=== PATIENT | female | born 1995 | race Caucasian/White ===

== ENCOUNTER 2018-12-20 14:32 | Inpatient (IN) | payer MEDICAID ==
[~2018-12-20] VITALS: Ht 152.4 cm; Wt 50.8 kg
[2018-12-20] MEDS ORDERED: SODIUM CHLORIDE 0.9% 1,000 ML IV ONE (15:17)
[2018-12-20] MEDS ORDERED: ONDANSETRON HCL 4MG/2ML INJ IV STA (15:17)
[2018-12-20] MEDS ORDERED: MORPHINE SULFATE 4 MG/ML CPJ (NOT FOR IM USE) IV STA (15:17)
[2018-12-20] MEDS ORDERED: KETOROLAC 30MG/ML VIAL IV STA (15:17)
[2018-12-20] MEDS ORDERED: MORPHINE SULFATE 4 MG/ML CPJ (NOT FOR IM USE) IV ONE (15:45)
[2018-12-20 16:50] LABS: BASOPHILS % 0.2 % (0.0-2.0); EOSINOPHILS % 0.4 % (0.0-5.0); HEMATOCRIT. 35.8 % (36.0-48.0); LYMPHOCYTES % 14.8 % (20.0-50.0); MEAN CORPUSCULAR VOLUME 83.7 fL (81.0-99.0); MEAN PLATELET VOLUME 9.2 fl (7.4-10.4); MONOCYTES % 5.1 % (2.0-8.0); NEUTROPHILS % 79.5 % (40.0-76.0); PLATELET 302 x1000/uL (130-400); RED BLOOD CELL COUNT 4.28 mill/uL (4.2-5.4); RED CELL DISTRIBUTION WIDTH 15.8 % (11.6-14.6)
[2018-12-20 16:51] LABS: CHLORIDE 109 mEq/L (98-107)
[2018-12-20 16:53] LABS: PROTHROMBIN TIME 10.3 sec (9.6-11.0)
[2018-12-20 17:05] LABS: HCG SCREEN NEGATIVE
[2018-12-20] MEDS ORDERED: LORAZEPAM 2MG/ML CPJ IV PRN (18:30)
[2018-12-20] MEDS ORDERED: MAGNESIUM/ALUMINUM HYDROXIDE/SIMETHICONE 30ML UDC PO PRN (18:30)
[2018-12-20] MEDS ORDERED: IPRATROPIUM/ALBUTEROL 0.5-3(2.5)MG/3ML NEB NEB PRN (18:30)
[2018-12-20] MEDS ORDERED: PIPERACILLIN/TAZ 3.375G PREMIX 50 ML IV SCH (18:30)
[2018-12-20] MEDS ORDERED: CLONIDINE 0.1MG TABLET PO PRN (18:30)
[2018-12-20] MEDS ORDERED: DIPHENHYDRAMINE 50MG/ML VIAL IV PRN (18:30)
[2018-12-20] MEDS ORDERED: ACETAMINOPHEN 325MG TABLET PO PRN (18:30)
[2018-12-20] MEDS ORDERED: DOCUSATE SODIUM 100MG CAPSULE PO PRN (18:30)
[2018-12-20] MEDS ORDERED: ONDANSETRON HCL 4MG/2ML INJ IV PRN (18:30)
[2018-12-20] MEDS ORDERED: HYDROCODONE/ACETAMINOPHEN 5/325MG TABLET PO PRN (18:30)
[2018-12-20] MEDS ORDERED: GUAIFENESIN 200MG/10ML SUGAR FREE UDC PO PRN (18:30)
[2018-12-20] MEDS ORDERED: DEXT 5%/0.45% NACL KCL 10MEQ/L 1,000 ML IV SCH (20:07)
[2018-12-20 21:00] VITALS: BP 136/95
[2018-12-20] MEDS ORDERED: NA PHOS,M-B/NA PHOS,DI-BA ENEMA 118ML PR PRN (21:00)
[2018-12-20] MEDS: MORPHINE SULFATE 2 MG/ML CPJ (NOT FOR IM USE) IV PRN (21:41)
[2018-12-20 21:45] VITALS: BP 136/95
[2018-12-21] VITALS: BP 129/54
[2018-12-21] MEDS: PIPERACILLIN/TAZOBACTAM 3.375 G in DEXT 5% WATER 100 ML IV SCH ×4 (00:01→22:11)
[2018-12-21 00:31] LABS: CHLORIDE 102 mEq/L (98-107)
[2018-12-21] MEDS: MORPHINE SULFATE 2 MG/ML CPJ (NOT FOR IM USE) IV PRN ×5 (02:29→21:42)
[2018-12-21 04:00] VITALS: BP 127/83
[2018-12-21 08:00] VITALS: BP 118/81
[2018-12-21 08:28] LABS: BASOPHILS % 0.2 % (0.0-2.0); EOSINOPHILS % 0.5 % (0.0-5.0); HEMATOCRIT. 39.7 % (36.0-48.0); HEMOGLOBIN. 13.3 g/dL (12.0-16.0); LYMPHOCYTES % 14.5 % (20.0-50.0); MEAN CORPUSCULAR HEMOGLOBIN 28.3 pg (28.0-32.0); MEAN CORPUSCULAR VOLUME 84.1 fL (81.0-99.0); MEAN PLATELET VOLUME 9.2 fl (7.4-10.4); MONOCYTES % 5.5 % (2.0-8.0); NEUTROPHILS % 79.3 % (40.0-76.0); PLATELET 288 x1000/uL (130-400); RED BLOOD CELL COUNT 4.72 mill/uL (4.2-5.4); RED CELL DISTRIBUTION WIDTH 15.8 % (11.6-14.6)
[2018-12-21 08:48] LABS: CHLORIDE 102 mEq/L (98-107)
[2018-12-21 08:59] LABS: LDL CHOLESTEROL 94 mg/dL (5-100)
[2018-12-21 09:00] LABS: HDL CHOLESTEROL 66 mg/dL (40-59)
[2018-12-21] MEDS: ENOXAPARIN 40MG/0.4ML SYR SUBCUT SCH (10:31)
[2018-12-21 12:00] VITALS: BP 118/71
[2018-12-21] MEDS ORDERED: POTASSIUM CHLORIDE INJ 40 MEQ in DEXT 5% WATER 500 ML IV SCH (13:00)
[2018-12-21 16:00] VITALS: BP 121/68
[2018-12-21] MEDS: DEXT 5%/0.45% NACL KCL 20MEQ/L 1,000 ML IV SCH (17:37)
[2018-12-21 18:24] LABS: HEPATITIS B SURFACE ANTIGEN NEGATIVE
[2018-12-21 18:54] LABS: HEPATITIS A AB IGM NEGATIVE (NEGATIVE)
[2018-12-21 18:59] LABS: CLARITY URINE CLEAR (CLEAR); COLOR URINE YELLOW (YELLOW); KETONES URINE NEGATIVE (NEGATIVE); LEUKOCYTE ESTERASE URINE NEGATIVE (NEGATIVE); NITRITE URINE NEGATIVE (NEGATIVE); OCCULT BLOOD URINE NEGATIVE (NEGATIVE); PROTEIN URINE NEGATIVE (NEGATIVE); SPECIFIC GRAVITY URINE 1.015 (1.005-1.030)
[2018-12-21 19:23] LABS: CANNABINOID URINE SCREEN NEGATIVE (NEGATIVE); PHENCYCLIDINE URINE SCREEN NEGATIVE (NEGATIVE)
[2018-12-21 19:24] LABS: *BARBITURATES SCREEN URINE NEGATIVE (NEGATIVE); *BENZODIAZEPINES SCREEN URINE NEGATIVE (NEGATIVE); *COCAINE SCREEN URINE NEGATIVE (NEGATIVE); METHADONE URINE SCREEN NEGATIVE (NEGATIVE)
[2018-12-21 19:30] LABS: *AMPHETAMINES SCREEN URINE PRESUMTIVE POSITIVE (NEGATIVE); OPIATES URINE SCREEN PRESUMTIVE POSITIVE (NEGATIVE)
[2018-12-21 20:00] VITALS: BP 115/73
[2018-12-22] VITALS: BP 106/71
[2018-12-22] MEDS: MORPHINE SULFATE 2 MG/ML CPJ (NOT FOR IM USE) IV PRN ×2 (03:48→20:20)
[2018-12-22 04:00] VITALS: BP 102/63
[2018-12-22] MEDS: PIPERACILLIN/TAZOBACTAM 3.375 G in DEXT 5% WATER 100 ML IV SCH ×3 (05:58→21:51)
[2018-12-22 06:49] LABS: CHLORIDE 106 mEq/L (98-107)
[2018-12-22 07:15] LABS: BASOPHILS % 0.3 % (0.0-2.0); EOSINOPHILS % 1.7 % (0.0-5.0); HEMATOCRIT. 35.6 % (36.0-48.0); HEMOGLOBIN. 12.1 g/dL (12.0-16.0); LYMPHOCYTES % 36.6 % (20.0-50.0); MEAN CORPUSCULAR HEMOGLOBIN 28.7 pg (28.0-32.0); MEAN CORPUSCULAR VOLUME 83.9 fL (81.0-99.0); MEAN PLATELET VOLUME 9.6 fl (7.4-10.4); MONOCYTES % 9.1 % (2.0-8.0); NEUTROPHILS % 52.3 % (40.0-76.0); PLATELET 289 x1000/uL (130-400); RED BLOOD CELL COUNT 4.24 mill/uL (4.2-5.4); RED CELL DISTRIBUTION WIDTH 16.1 % (11.6-14.6)
[2018-12-22 08:00] VITALS: BP 105/58
[2018-12-22] MEDS ORDERED: ONDANSETRON HCL 4MG/2ML INJ IV PRN ×2 (09:00→10:30)
[2018-12-22] MEDS ORDERED: HYDROCODONE/ACETAMINOPHEN 5/325MG TABLET PO PRN (09:00)
[2018-12-22] MEDS: ENOXAPARIN 40MG/0.4ML SYR SUBCUT SCH (09:00)
[2018-12-22] MEDS ORDERED: MORPHINE SULFATE 4 MG/ML CPJ (NOT FOR IM USE) IV PRN (09:00)
[2018-12-22] MEDS ORDERED: SKIN ADHESIVE 0.7 GM EA TOP ONE ×2 (09:24→09:30)
[2018-12-22] MEDS ORDERED: BUPIVACAINE HCL 0.5% (5MG/ML) 50ML ONE (09:30)
[2018-12-22] MEDS ORDERED: MIDAZOLAM HCL 2 MG/2 ML VIAL ONE (09:35)
[2018-12-22] MEDS ORDERED: ROCURONIUM BROMIDE 10MG/ML VIAL 5ML IV ONE (09:35)
[2018-12-22] MEDS ORDERED: PROPOFOL 200MG/20ML VIAL IV ONE (09:35)
[2018-12-22] MEDS ORDERED: LIDOCAINE HCL/PF 1% 10 MG/ML 5ML VIAL ONE (09:35)
[2018-12-22] MEDS ORDERED: FENTANYL CITRATE/PF 50MCG/ML 2ML VIAL ONE (09:35)
[2018-12-22] MEDS ORDERED: CEFAZOLIN SODIUM 1000MG/VIAL ONE (09:55)
[2018-12-22] MEDS: DEXT 5%/0.45% NACL KCL 20MEQ/L 1,000 ML IV SCH ×4 (10:00→21:01)
[2018-12-22] MEDS ORDERED: MEPERIDINE HCL/PF 25MG/ML CPJ IV PRN (10:30)
[2018-12-22] MEDS ORDERED: FENTANYL CITRATE/PF 50MCG/ML 2ML VIAL IV PRN (10:30)
[2018-12-22] MEDS ORDERED: HYDROMORPHONE HCL/PF 2MG/ML CPJ IV PRN (10:30)
[2018-12-22] MEDS ORDERED: GLYCOPYRROLATE 0.2 MG/ML 2ML VIAL ONE (10:45)
[2018-12-22] MEDS ORDERED: NEOSTIGMINE METHYLSULFATE 1MG/ML 10 ML VIAL ONE (10:45)
[2018-12-22 12:00] VITALS: BP 108/64
[2018-12-22] MEDS: SODIUM CHLORIDE 0.9% INJ 3ML FLUSH IVF SCH ×2 (14:00→21:51)
[2018-12-22] MEDS: MORPHINE SULFATE 4 MG/ML CPJ (NOT FOR IM USE) IV PRN ×2 (15:14→23:16)
[2018-12-22 15:53] VITALS: BP 114/68
[2018-12-22] MEDS: HYDROCODONE/ACETAMINOPHEN 5/325MG TABLET PO PRN (18:33)
[2018-12-22 20:00] VITALS: BP 112/66
[2018-12-23] VITALS: BP 110/68
[2018-12-23] MEDS: MORPHINE SULFATE 4 MG/ML CPJ (NOT FOR IM USE) IV PRN ×3 (03:09→12:23)
[2018-12-23 04:00] VITALS: BP 108/68
[2018-12-23] MEDS: DEXT 5%/0.45% NACL KCL 20MEQ/L 1,000 ML IV SCH (05:07)
[2018-12-23] MEDS: PIPERACILLIN/TAZOBACTAM 3.375 G in DEXT 5% WATER 100 ML IV SCH (05:07)
[2018-12-23] MEDS: SODIUM CHLORIDE 0.9% INJ 3ML FLUSH IVF SCH (05:08)
[2018-12-23] MEDS: HYDROCODONE/ACETAMINOPHEN 5/325MG TABLET PO PRN ×2 (05:54→10:08)
[2018-12-23 08:00] VITALS: BP 149/75
[2018-12-23] MEDS: ENOXAPARIN 40MG/0.4ML SYR SUBCUT SCH (08:17)
[2018-12-23 09:09] LABS: ABSOLUTE LYMPHOCYTES 1.3 x10E3/uL (0.7-3.1); ABSOLUTE MONOCYTES 0.3 x10E3/uL (0.1-0.9); ABSOLUTE NEUTROPHILS 4.2 x10E3/uL (1.4-7.0); BASOPHILS 0 % (Not Estab.); HEMATOCRIT 39.2 % (34.0-46.6); HEMOGLOBIN 12.7 g/dL (11.1-15.9); IMMATURE GRANULOCYTES 0 % (Not Estab.); LYMPHOCYTES 23 % (Not Estab.); MEAN CORPUSCULAR HEMOGLOBIN 27.4 pg (26.6-33.0); MEAN CORPUSCULAR HGB CONC. 32.4 g/dL (31.5-35.7); MEAN CORPUSCULAR VOLUME 85 fL (79-97); MONOCYTES 5 % (Not Estab.); NEUTROPHILS 71 % (Not Estab.); PLATELETS 370 x10E3/uL (150-450); RBC 4.64 x10E6/uL (3.77-5.28); WBC 5.8 x10E3/uL (3.4-10.8)
[2018-12-23 11:22] VITALS: BP 113/62
[2018-12-23 12:00] VITALS: BP 158/84
[2018-12-23 12:23] VITALS: BP 113/62
[2018-12-23 17:10] LABS: % CD 3 POS. LYMPHOCYTES 62.1 % (57.5-86.2); % CD 4 POS. LYMPHOCYTES 29.4 % (30.8-58.5); % CD 8 POS. LYMPH 31.6 % (12.0-35.5); ABSOLUTE CD 3 807 /uL (622-2402); ABSOLUTE CD 4 HELPER 382 /uL (359-1519); ABSOLUTE CD 8 SUPPRESSOR 411 /uL (109-897); CD4/CD8 RATIO 0.93 (0.92-3.72)
== END 2018-12-23 12:39 | disposition home or self-care (01) | DRG 263 ==
LOC: ER 14:32 → 6EST 18:05 → ENRESERV 19:49
PROVIDERS: ADMIT Internal Medicine; ATTEND Internal Medicine
PROC: 0FT44ZZ Resection of Gallbladder, Percutaneous Endoscopic Approach (ICD-10-PCS; principal; 2018-12-22)
DX: K80.00 Calculus of gallbladder with acute cholecystitis without obstruction (principal); B20 Human immunodeficiency virus [HIV] disease; E86.0 Dehydration; E87.6 Hypokalemia; Z91.14 Patient's other noncompliance with medication regimen
CPT/HCPCS: 36415; 73706; 76705; 78227; 80048; 80061; 80305; 81003; 84703; 86359; 86360; 86705; 86709; 86803; 87340; 88304; 99285; A9537; J0690; J1650; J2175; J2250; J2270; J2405; J2543; J2704; J2710; J3010; J3480; J3490; J7030; J7042; J7060

== ENCOUNTER 2019-05-06 01:10 | Emergency (ER) | payer MEDICAID ==
[~2019-05-06] VITALS: Ht 152.4 cm; Wt 65.0 kg
[2019-05-06 01:42] VITALS: BP 114/68
== END 2019-05-06 03:20 | disposition home or self-care (01) ==
LOC: ER 01:10
DX: Z02.2 Encounter for examination for admission to residential institution (principal)
CPT/HCPCS: 99283